=== PATIENT | female | born 1995 | race Caucasian/White ===

== ENCOUNTER 2021-01-30 02:30 | Emergency (ER) | payer OTHER ==
[~2021-01-30] VITALS: Ht 157.5 cm; Wt 45.4 kg
[~2021-01-30 02:30] MED LIST: CIPR500T4 PO; CIPR500T86 PO; PANT40TA6 PO; TRAM50TA PO; VALA10004 PO
[2021-01-30 02:41] VITALS: BP 145/91
[2021-01-30] MEDS ORDERED: TORADOL IV STA (02:48)
[2021-01-30] MEDS ORDERED: NS 1000ML 1,000 ML IV STA (02:48)
--- NOTE | 2021-01-30 02:53 | ER.PDOC ---
General Chief Complaint: Flank Pain Stated Complaint: POSS KIDNEY STONE Time seen by MD: 02:51 Source: patient Exam Limitations: no limitations History of Present Illness Initial Comments Bilateral flank pain since last night. Patient thinks that she is passing a kidney stone as she has had in the past. No nausea or vomiting. No fever or chills. Timing/Duration: 4-6 hours Severity/Quality: moderate, sharpness Radiation: no radiation Associated Symptoms: denies symptoms Exacerbated by: nothing Relieved By: nothing Allergies: Coded Allergies: codeine (Verified Allergy, Severe, CHEST PAIN, 09/29/20) Home Meds Active Scripts Tramadol Hcl (TRAMADOL HCL) 50 Mg Tablet, 30 MG PO Q6 PRN for PAIN, #30 TABLET Prov:GONZÁLEZ MAURICIO MD 09/30/20 Ciprofloxacin Hcl (CIPRO) 500 Mg Tablet, 500 MG PO BID, #20 Prov:GONZÁLEZ MAURICIO MD 09/30/20 Reported Medications Valacyclovir Hcl (VALTREX) 1,000 Mg Tablet, 1 TAB PO DAILY, #30 TAB 5 Refills 09/29/20 Pantoprazole Sodium (PANTOPRAZOLE SODIUM) 40 Mg Tablet.dr, 1 TAB PO DAILY, #30 TAB 3 Refills 09/29/20 Vital Signs First Vital Signs Date Time Temp Pulse Resp B/P (MAP) Pulse Ox O2 Delivery O2 Flow Rate FiO2 01/30/21 02:41 99.0 99 16 01/30/21 02:41 98 01/30/21 02:41 145/91 (109) Room Air Last Vital Signs Date Time Temp Pulse Resp B/P (MAP) Pulse Ox O2 Delivery O2 Flow Rate FiO2 01/30/21 03:45 99.0 63 16 125/81 (96) Room Air 01/30/21 02:41 98 Past Medical History Medical History: GERD, other Surgical History: tonsillectomy Family History Significant Family History: no pertinent family hx Social History Smoking: non-smoker Alcohol Use: occassionally Drug Use: none Constitutional: no symptoms reported EENTM: no symptoms reported Respiratory: no symptoms reported Cardiovascular: no symptoms reported Gastrointestinal: see HPI Genitourinary: see HPI All Other Systems: Reviewed and Negative Physical Exam General Appearance: No Apparent Distress, WD/WN Neck: Non-Tender, Full Range of Motion, Supple, Normal Inspection Respiratory: chest non-tender, lungs clear, normal breath sounds, no respiratory distress, no accessory muscle use Cardiovascular: Normal Peripheral Pulses, Regular Rate, Rhythm, No Edema, No Gallop, No JVD, No Murmur Gastrointestinal: Normal Bowel Sounds, No Organomegaly, No Pulsatile Mass, Non Tender Back: CVA Tenderness (R), CVA Tenderness (L) Extremities: Normal Range of Motion, Non-Tender, Normal Inspection, No Pedal Edema, No Calf Tenderness, Normal Capillary Refill, Pelvis Stable Neurologic/Psychiatric: contact lens assistant II-XII NML as Tested, No Motor/Sensory Deficits, Alert, Normal Mood/Affect, Oriented x 3 Skin: Normal Color, Warm/Dry Lymphatic: No Adenopathy Results/Orders Results/Orders Orders - JOHNSON CORTEZ MD Cbc With Auto Diff (01/30/21 02:48) Comprehensive Metabolic Panel (01/30/21 02:48) PT (01/30/21 02:48) Partial Thromboplastin Time. (01/30/21 02:48) Urinalysis (01/30/21 02:48) Ct Abd/Pelvis Wo Iv Contrast (01/30/21 02:48) 0.9 % Sodium Chloride (Ns 1000ml) (01/30/21 02:48) Ketorolac Tromethamine (Toradol) (01/30/21 02:48) Hcg Urine (01/30/21 02:48) 0.9 % Sodium Chloride (Ns 1000ml) (01/30/21 02:55) Ketorolac Tromethamine (Toradol) (01/30/21 02:55) Urine Culture (01/30/21 02:35) Ceftriaxone Sodium (Rocephin) (01/30/21 04:08) Ceftriaxone Sodium (Rocephin) (01/30/21 04:08) Vital Signs Date Time Temp Pulse Resp B/P (MAP) Pulse Ox O2 Delivery O2 Flow Rate FiO2 01/30/21 03:45 99.0 63 16 125/81 (96) Room Air 01/30/21 02:41 99.0 99 16 145/91 (109) 98 Room Air 01/30/21 02:41 99.0 99 16 98 01/30/21 02:41 99.0 99 16 Administered Medications Medications (Trade) Dose Ordered Sig/Ray Route PRN Reason Start Time Stop Time Status Last Admin Dose Admin Ketorolac Tromethamine (Toradol) 15 mg STAT STAT IV 01/30/21 02:48 01/30/21 02:53 DC 01/30/21 03:02 15 MG Sodium Chloride 1,000 ml @ 1,200 mls/hr Q50M STAT IV 01/30/21 02:48 01/30/21 03:37 DC 01/30/21 03:02 1,200 MLS/HR Laboratory Tests Test 01/30/21 02:35 01/30/21 03:00 Urine Collection Type RANDOM Urine Color YELLOW Urine Appearance CLOUDY Urine Bilirubin NEGATIVE (NEGATIVE) Urine Ketones NEGATIVE (NEGATIVE) Urine Specific [place] 1.015 (1.005-1.030) Urine pH 5.5 (4.5-8.0) Urine Protein TRACE (NEGATIVE) H Urine Urobilinogen 0.2 E.U./dL (0.2) Urine Nitrate NEGATIVE (NEGATIVE) Urine Leukocyte Esterase SMALL (NEGATIVE) H Urine Glucose (Auto)(UA) NEGATIVE (NEGATIVE) Urine Blood NEGATIVE (NEGATIVE) Urine RBC NONE SEEN RBC/HPF (NONE Urine WBC 2-5 WBC/HPF (0-2) Urine Squamous Epithelial Cells MANY #/HPF (FEW) Urine Bacteria FEW (NONE SEEN) H Urine HCG, Qualitative NEGATIVE (NEGATIVE) White Blood Count 15.8 10^3/uL (4.5-11.0) H Red Blood Count 4.37 10^6/uL (4.00-5.20) Hemoglobin 14.0 g/dL (12.0-15.0) Hematocrit 42.4 % (36.0-46.0) Mean Corpuscular Volume 97.0 fL (78-100) Mean Corpuscular Hemoglobin 32.0 pg (26-34) Mean Corpuscular Hemoglobin Concent 33.0 g/dL (33-36.5) Red Cell Distribution Width 12.1 % (11.5-14.5) Platelet Count 261 10^3/uL (150-400) Mean Platelet Volume 10.1 fL (7.8-11.0) Neutrophils (%) (Auto) 69.1 % (41.0-85.0) Lymphocytes (%) (Auto) 19.8 % (24.0-44.0) L Monocytes (%) (Auto) 8.7 % (5.0-12.0) Neutrophils # (Auto) 10.9 10^3/uL (1.8-7.7) H Lymphocytes # (Auto) 3.14 10^3/uL1 (1.0-4.8) Monocytes # (Auto) 1.4 10^3/uL (0.3-0.8) H Absolute Immature Granulocyte (auto 0.03 10^3 u/L (0-2) Absolute Eosinophils (auto) 0.2 10^3/uL (0.0-0.2) Immature Granulocytes % 0.20 % (0.00-0.50) Eosinophils % 1.5 % (0.0-5.0) Basophils % 0.7 % (0.0-0.2) H Basophils # 0.1 10^3/uL (0.0-0.1) Prothrombin Time 11.6 SEC (9.6-12.0) Prothrombin Time INR (Non-Therap) 1.1 Activated Partial Thromboplast Time 23.6 SEC (24.67-30.72) Sodium Level 143 mmol/L (132-145) Potassium Level 3.2 mmol/L (3.6-5.2) L Chloride Level 106.0 mmol/L (96-109) Carbon Dioxide Level 25.2 mmol/L (20.0-32) Anion Gap 15.0 Blood Urea Nitrogen 16 mg/dL (7-18) Creatinine 0.83 mg/dL (0.59-1.40) Estimated GFR () 99.8 (>/=60) Est GFR (CKD-EPI)(Non-Afr Citizen Of [place]) 82.5 (>/=60) BUN/Creatinine Ratio 19.0 Glucose Level 95 mg/dL (70-110) Calcium Level 8.9 mg/dL (8.4-10.5) Total Bilirubin 0.5 mg/dL (0.2-1.0) Aspartate Amino Transferase (AST) 5 U/L (0-35) Alanine Aminotransferase (ALT) 15 U/L (12-78) Alkaline Phosphatase 82 U/L (50-136) Total Protein 7.3 g/dL (6.4-8.2) Albumin 4.0 g/dL (3.4-5.0) Globulin 3.3 Albumin/Globulin Ratio 1.[address] abdomen/pelvis: No significant abnormalities to explain the patient's pain. The Reviewed labs and CT results with the patient. WBC is elevated at 15.8 from a urinary tract infection and stress. Potassium is 3.2 and rest of chemistries are normal. She received a gram of Rocephin. She is currently pain-free and ready to go home. ER DEPART Departure Time of Disposition: 04:15 Disposition: 01 HOME / SELF CARE / HOMELESS Impression: Primary Impression: Flank pain Additional Impression: UTI (urinary tract infection) Condition: Improved Referrals: DEEPTHI ECHEVERRIA PA-C (PCP) PRIMARY CARE PROVIDER Additional Instructions: Bactrim DS Ibuprofen F/U with your PCP in 2-3 days Return to ED if worsening or concerns Duration or Time Spent with Pa: 45 min Problem Qualifiers Additional Impression: UTI (urinary tract infection) Urinary tract infection type: site unspecified Hematuria presence: without hematuria Qualified Codes: N39.0 - Urinary tract infection, site not specified JOHNSON CORTEZ MD Jan 30, 2021 02:52
[2021-01-30] MEDS ORDERED: TORADOL ONE (02:55)
[2021-01-30] MEDS ORDERED: NS 1000ML 1,000 ML ONE (02:55)
[2021-01-30 03:04] LABS: BASOPHIL # 0.1 10^3/uL (0.0-0.1); BASOPHIL % 0.7 % (0.0-0.2); EOSINOPHIL # 0.2 10^3/uL (0.0-0.2); EOSINOPHIL % 1.5 % (0.0-5.0); LYMPHOCYTES # 3.14 10^3/uL1 (1.0-4.8); LYMPHOCYTES % 19.8 % (24.0-44.0); MONOCYTES # 1.4 10^3/uL (0.3-0.8); MONOCYTES % 8.7 % (5.0-12.0); NEUTROPHIL # 10.9 10^3/uL (1.8-7.7); NEUTROPHILS % 69.1 % (41.0-85.0); PLATELET COUNT 261 10^3/uL (150-400); RED CELL DISTRIBUTION WIDTH 12.1 % (11.5-14.5)
[2021-01-30 03:14] LABS: BILIRUBIN,URINE NEGATIVE (NEGATIVE); UA COLOR YELLOW; UROBILINOGEN,URINE 0.2 E.U./dL (0.2)
[2021-01-30 03:20] LABS: CALCIUM 8.9 mg/dL (8.4-10.5); CARBON DIOXIDE 25.2 mmol/L (20.0-32)
[2021-01-30 03:45] VITALS: BP 125/81
--- NOTE | 2021-01-30 03:59 | DIREP ---
PROCEDURE:CT ABD/PELVIS W/O TECHNIQUE:Axial cuts were obtained through the abdomen and pelvis without IV contrast. The images were viewed at lung and soft tissue settings. Sagittal and coronal reconstructions are provided. COMPARISON:None. INDICATIONS:Bilateral flank pain FINDINGS: LOWER CHEST:The lung bases are clear. LIVER:Normal. BILIARY:Normal. PANCREAS:Normal. SPLEEN:Normal. URINARY TRACT:Normal. ADRENALS:Normal. AORTA/VASCULAR:Normal. RETROPERITONEUM:Normal. BOWEL/MESENTERY:Normal. Appendix not clearly identified. No inflammatory changes in the right lower quadrant. ABDOMINAL WALL:Normal. PELVIS:Normal. BONES:Normal. OTHER:Normal. CONCLUSION:No significant abnormalities to explain the patient's pain. The Dictated by: Marky Becker M.D. on 01/30/2021 at 03:53 AM
[2021-01-30] MEDS ORDERED: ROCEPHIN ONE (04:08)
[2021-01-30] MEDS ORDERED: ROCEPHIN 1,000 MG in NS 100ML 100 ML IV STA (04:08)
[2021-01-30 04:12] VITALS: BP 114/73
--- NOTE | 2021-01-30 04:16 | NUR ---
IV DC'D TIP INTACT, NO BLEEDING
== END 2021-01-30 04:25 | disposition home or self-care (01) ==
LOC: ER 02:30
DX: N39.0 Urinary tract infection, site not specified (principal); K21.9 Gastro-esophageal reflux disease without esophagitis; Z79.1 Long term (current) use of non-steroidal anti-inflammatories (NSAID); Z87.442 Personal history of urinary calculi; Z88.5 Allergy status to narcotic agent
CPT/HCPCS: 36415; 74176; 80053; 81001; 81025; 85025; 85610; 85730; 87086; 96361; 96374; 96375; 99284; J0696 ×2; J1885; J7030

== ENCOUNTER 2021-04-09 14:07 | Emergency (ER) | payer OTHER ==
[~2021-04-09] VITALS: Ht 157.5 cm; Wt 43.1 kg
[2021-04-09 14:18] VITALS: BP 119/72
--- NOTE | 2021-04-09 14:23 | NUR ---
ARRIVAL PATIENT ARRIVED TO THE ED VIA GURNEY BY [facility], EMS CALLED TO [facility] FOR BACK AND PELVIC PAIN THAT STARTED [employer], EMS INITIATED AN 18G TO THE LEFT AC AND GAVE ZOFRAN 4MG AND TOTAL OF FENTANYL 100MIC AND NORMAL SALINE BOLUS, BROUGHT TO THE ED FOR EVAL, VITAL SIGNS OBTAINED AND DOCTOR NOTIFIED OF PATIENT'S ARRIVAL.
[2021-04-09] MEDS ORDERED: TORADOL ONE (14:43)
[2021-04-09] MEDS: TORADOL IV STA (14:43)
[2021-04-09 14:56] LABS: BASOPHIL # 0.1 10^3/uL (0.0-0.1); BASOPHIL % 0.7 % (0.0-0.2); EOSINOPHIL # 0.2 10^3/uL (0.0-0.2); EOSINOPHIL % 1.3 % (0.0-5.0); LYMPHOCYTES # 2.99 10^3/uL1 (1.0-4.8); LYMPHOCYTES % 22.1 % (24.0-44.0); MEAN CORP HGB 32.4 pg (26-34); MONOCYTES # 0.9 10^3/uL (0.3-0.8); MONOCYTES % 6.3 % (5.0-12.0); NEUTROPHIL # 9.4 10^3/uL (1.8-7.7); NEUTROPHILS % 69.3 % (41.0-85.0); RED CELL DISTRIBUTION WIDTH 12.2 % (11.5-14.5)
[2021-04-09 14:56] LABS: BILIRUBIN,URINE NEGATIVE (NEGATIVE)
[2021-04-09 15:14] LABS: CALCIUM 8.5 mg/dL (8.4-10.5); CARBON DIOXIDE 23.4 mmol/L (20.0-32)
[2021-04-09] MEDS: REGLAN IV STA (15:29)
[2021-04-09 15:37] VITALS: BP 123/59
--- NOTE | 2021-04-09 16:20 | ER.PDOC ---
General Chief Complaint: Female Urogenital Problems Stated Complaint: FEMALE Time seen by MD: 14:15 Source: patient Exam Limitations: no limitations History of Present Illness Initial Comments 25 Y F sudden onset L flank pain, some nausea no emesis, no urinary symptoms, no diarrhea, no constipation, LMP 3 weeks ago, hx of kidney stones Allergies: Coded Allergies: codeine (Verified Allergy, Severe, CHEST PAIN, 09/29/20) Home Meds Active Scripts Tramadol Hcl (TRAMADOL HCL) 50 Mg Tablet, 30 MG PO Q6 PRN for PAIN, #30 TABLET Prov:GONZÁLEZ MAURICIO MD 09/30/20 Ciprofloxacin Hcl (CIPRO) 500 Mg Tablet, 500 MG PO BID, #20 Prov:GONZÁLEZ MAURICIO MD 09/30/20 Reported Medications Valacyclovir Hcl (VALTREX) 1,000 Mg Tablet, 1 TAB PO DAILY, #30 TAB 5 Refills 09/29/20 Pantoprazole Sodium (PANTOPRAZOLE SODIUM) 40 Mg Tablet.dr, 1 TAB PO DAILY, #30 TAB 3 Refills 09/29/20 Past Medical History Medical History: GERD, other Surgical History: tonsillectomy Social History Alcohol Use: none Drug Use: none Review of Systems All Other Systems: Reviewed and Negative Physical Exam General Appearance: No Apparent Distress EENT: nml ENT inspection Cardiovascular/Respiratory: Regular Rate, Rhythm, Normal Peripheral Pulses Abdomen: Non Tender, Soft Back: nml inspection Extremities: Normal Inspection Neurologic/Psychiatric: No Motor/Sensory Deficits Skin: Normal Color Lymphatic: No Adenopathy Results/Orders Results/Orders Orders - NUBIA LEWIS MD Cbc With Auto Diff (04/09/21 14:39) Comprehensive Metabolic Panel (04/09/21 14:39) Lipase (04/09/21 14:39) Hcg Qualitative Serum (04/09/21 14:39) Urinalysis (04/09/21 14:39) Ketorolac Tromethamine (Toradol) (04/09/21 14:39) Ketorolac Tromethamine (Toradol) (04/09/21 14:43) Metoclopramide Hcl (Reglan) (04/09/21 15:24) Vital Signs Date Time Temp Pulse Resp B/P (MAP) Pulse Ox O2 Delivery O2 Flow Rate FiO2 04/09/21 15:37 98.0 77 18 123/59 (80) 98 Room Air 04/09/21 14:18 98.0 71 18 04/09/21 14:18 98.0 71 18 98 04/09/21 14:18 98.0 71 18 119/72 (88) 98 Room Air Administered Medications Medications (Trade) Dose Ordered Sig/Ray Route PRN Reason Start Time Stop Time Status Last Admin Dose Admin Ketorolac Tromethamine (Toradol) 15 mg OT STAT IV 04/09/21 14:39 04/09/21 14:40 DC 04/09/21 14:43 15 MG Metoclopramide HCl (Reglan) 10 mg STAT STAT IV 04/09/21 15:24 04/09/21 15:25 DC 04/09/21 15:29 10 MG Laboratory Tests Test 04/09/21 14:39 04/09/21 14:47 Urine Collection Type RANDOM Urine Color YELLOW Urine Appearance CLOUDY Urine Bilirubin NEGATIVE (NEGATIVE) Urine Ketones 40 mg/dL (NEGATIVE) H Urine Specific [place] 1.025 (1.005-1.030) Urine pH 7.0 (4.5-8.0) Urine Protein NEGATIVE (NEGATIVE) Urine Urobilinogen 2.0 E.U./dL (0.2) Urine Nitrate NEGATIVE (NEGATIVE) Urine Leukocyte Esterase NEGATIVE (NEGATIVE) Urine Glucose (Auto)(UA) NEGATIVE (NEGATIVE) Urine Blood NEGATIVE (NEGATIVE) Urine RBC 0-2 RBC/HPF (NONE SEEN) Urine WBC 0-2 WBC/HPF (0-2) Urine Squamous Epithelial Cells MODERATE #/HPF (FEW) Urine Bacteria NONE SEEN (NONE SEEN) Urine Other 2+ MUCUS #/HPF White Blood Count 13.6 10^3/uL (4.5-11.0) H Red Blood Count 4.01 10^6/uL (4.00-5.20) Hemoglobin 13.0 g/dL (12.0-15.0) Hematocrit 40.3 % (36.0-46.0) Mean Corpuscular Volume 100.5 fL (78-100) H Mean Corpuscular Hemoglobin 32.4 pg (26-34) Mean Corpuscular Hemoglobin Concent 32.3 g/dL (33-36.5) L Red Cell Distribution Width 12.2 % (11.5-14.5) Platelet Count 241 10^3/uL (150-400) Mean Platelet Volume 11.1 fL (7.8-11.0) H Neutrophils (%) (Auto) 69.3 % (41.0-85.0) Lymphocytes (%) (Auto) 22.1 % (24.0-44.0) L Monocytes (%) (Auto) 6.3 % (5.0-12.0) Neutrophils # (Auto) 9.4 10^3/uL (1.8-7.7) H Lymphocytes # (Auto) 2.99 10^3/uL1 (1.0-4.8) Monocytes # (Auto) 0.9 10^3/uL (0.3-0.8) H Absolute Immature Granulocyte (auto 0.04 10^3 u/L (0-2) Absolute Eosinophils (auto) 0.2 10^3/uL (0.0-0.2) Immature Granulocytes % 0.30 % (0.00-0.50) Eosinophils % 1.3 % (0.0-5.0) Basophils % 0.7 % (0.0-0.2) H Basophils # 0.1 10^3/uL (0.0-0.1) Sodium Level 140 mmol/L (132-145) Potassium Level 3.5 mmol/L (3.6-5.2) L Chloride Level 109.0 mmol/L (96-109) Carbon Dioxide Level 23.4 mmol/L (20.0-32) Anion Gap 11.1 Blood Urea Nitrogen 11 mg/dL (7-18) Creatinine 0.59 mg/dL (0.59-1.40) Estimated GFR () 147.9 (>/=60) Est GFR (CKD-EPI)(Non-Afr [place]) 122.3 (>/=60) BUN/Creatinine Ratio 18.0 Glucose Level 78 mg/dL (70-110) Calcium Level 8.5 mg/dL (8.4-10.5) Total Bilirubin 0.4 mg/dL (0.2-1.0) Aspartate Amino Transferase (AST) 7 U/L (0-35) Alanine Aminotransferase (ALT) 16 U/L (12-78) Alkaline Phosphatase 70 U/L (50-136) Total Protein 6.7 g/dL (6.4-8.2) Albumin 3.7 g/dL (3.4-5.0) Globulin 3.0 Albumin/Globulin Ratio 1.233 Lipase 32 U/L (114-286) L Serum HCG, Qualitative NEGATIVE (NEGATIVE) ER DEPART Departure Time of Disposition: 16:18 Disposition: 01 HOME / SELF CARE / HOMELESS Impression: Primary Impression: Generalized abdominal pain Condition: Improved Referrals: DEEPTHI ECHEVERRIA PA-C (PCP) PRIMARY CARE PROVIDER Duration or Time Spent with Pa: Paulom NUBIA LEWIS MD Apr 09, 2021 16:20
== END 2021-04-09 16:31 | disposition home or self-care (01) ==
LOC: ER 14:07 → EDBD 14:07 → ER 16:31
DX: R10.84 Generalized abdominal pain (principal); R11.0 Nausea; Z79.1 Long term (current) use of non-steroidal anti-inflammatories (NSAID); Z79.899 Other long term (current) drug therapy; Z88.5 Allergy status to narcotic agent
CPT/HCPCS: 36415; 80053; 81001; 83690; 84703; 85025; 96374; 96375; 99284; J1885

== ENCOUNTER 2021-07-19 23:58 | Emergency (ER) | payer OTHER | END 2021-07-20 00:38 | disposition left against medical advice (07) | LOC: ER 23:58 | DX: H92.09 Otalgia, unspecified ear (principal); Z53.21 Procedure and treatment not carried out due to patient leaving prior to being seen by health care provider ==